=== PATIENT | male | born 1975 | race Caucasian/White ===

== ENCOUNTER 2020-07-23 11:11 | Emergency (ER) | payer OTHER, SELFPAY ==
--- NOTE | ~2020-07-23 | XR_ITS ---
XR knee RT 3V DATE: 07/23/2020 12:31 INDICATION: Right leg swelling TECHNIQUE: 3 views including crosstable lateral COMPARISON: None FINDINGS: No fracture or dislocation or joint effusion. No radiopaque intra-articular loose body or c hondrocalcinosis. Joint spaces are preserved. No periosteal reaction or bone destruction. IMPRESSION: Negative Reviewed, dictated and finalized at location A. IMPRESSION: Negative
--- NOTE | ~2020-07-23 | US_ITS ---
US venous doppler LE RT DATE: 07/23/2020 12:46 INDICATION: Right leg swelling following injury of right leg on exercising TECHNIQUE: Real-time and color flow imaging and Doppler analysis of the veins of the right lower extr emity COMPARISON: None FINDINGS: The right greater saphenous vein is patent. There is spontaneous and phasic flow and normal augmentation and color flow signal and normal compression of the deep veins of the right leg. IMPRESSION: No evidence of deep venous thrombosis of right leg Reviewed, dictated and finalized at [facility]. Reviewed, dictated and finalized at location A.
[2020-07-23 11:14] VITALS: BP 144/93; PULSE 70; RESP 18; TEMP 36.5; O2SAT 100
--- NOTE | 2020-07-23 12:15 | ED.GENADULT ---
HPI - General Adult General Chief complaint: Extremity Injury, Lower Stated complaint: right leg injury Time Seen by Provider: 07/23/20 11:25 Source: patient Mode of arrival: ambulatory Limitations: no limitations History of Present Illness HPI narrative: Patient presents for evaluation of right lower extremity pain and swelling. He indicates that she was kickboxing 3 days ago and was pushing off the ground with his right foot when he heard a pop in his right calf. He initially did not have any swelling in the right lower extremity. He states that today he noticed increased swelling in the right lower extremity. He contacted his doctor at one point and was informed that he should be evaluated urgently to rule out DVT. No personal or family history of VTE. He cannot provide me with a descriptive quality of the pain or numerical rating but states that pain is worse in the posterior right lower extremity with walking. He is taking naproxen for pain. He has a history of a torn meniscus in the right knee and was scheduled to have repair, however this was this plan was aborted in [place] about ten weeks ago after extent of injury was visualized. It was recommended he had a transplant in the future. Related Data Allergies Allergy/AdvReac Type Severity Reaction Status Date / Time No Known Allergies Allergy Verified 07/23/20 11:38 Review of Systems Review of Systems: Narrative: CONSTITUTIONAL: Denies fever, chills, or sweats. EYES: Denies visual changes, redness, or discharge. ENT: Denies rhinorrhea, congestion, sore throat, or otalgia. CARDIOVASCULAR: Reports swelling in right lower extremity. Denies chest pain, palpitations RESPIRATORY: Denies cough or dyspnea. GASTROINTESTINAL: Denies abdominal pain, nausea, vomiting, or diarrhea. GENITOURINARY: Denies dysuria or hematuria. SKIN: Denies rash or itching. MUSCULOSKELETAL: Reports pain in posterior right lower extremity. Denies back pain NEUROLOGIC: Denies headache, numbness, dizziness, or weakness. PSYCHIATRIC: Denies anxiety or depression. [facility] Past Medical History Medical History (Updated 07/23/20 @ 14:23 by Jose De Jesus Velasco, DARA, ) History of torn meniscus of right knee Family History Family History Mother Heart disease Social History Social History Smoking status: Never smoker Alcohol intake: never Substance use: never Living arrangements: with family Gender identity (if verbalized by the patient): Male Sexual Orientation (if Verbalized by the Patient): Straight or Heterosexual Spiritual care concerns: No Exam Narrative: Exam Narrative: GENERAL: Well-appearing, well-nourished, and in no acute distress. HEAD: Normocephalic, atraumatic. EYES: PERRLA and EOMI. ENT: Nares clear, no rhinorrhea or epistaxis. Mucous membranes moist. Oropharynx without tonsillar hypertrophy exudate or other lesions. Bilateral TMs pearly escalera nonbulging NECK: Supple. No adenopathy or masses. No carotid bruits or JVD CHEST: Clear to auscultation. No respiratory distress. No wheezes rales or rhonchi HEART: Regular rate and rhythm. No murmur heard. Normal peripheral pulses. ABDOMEN: Soft, nontender, nondistended, normal active bowel sounds. EXTREMITIES: Full range of motion of the right knee and right ankle. Positive crepitus in the right knee without deformity. Tenderness in posterior aspect of the right lower leg. 2+ pitting edema right lower extremity SKIN: Pt had michelle wrap in place, which was removed for examination. Warm, dry, no rash. NEURO: No focal deficits. Alert and oriented x3. PSYCH: Normal mood and affect. Course Course Emergency Course: This is a 45-year-old male who presented with complaints of swelling the right lower extremity after he injured his leg a few days prior. There was unilateral swelling, only on the right lower extremity. He has Dop
--- NOTE | 2020-07-23 12:22 | PC.NURSE ---
xray at bedside.
--- NOTE | 2020-07-23 12:34 | PC.NURSE ---
Pt to ultrasound.
[2020-07-23 12:45] LABS: Basophils Absolute Auto 0.1 K/mm3 (0.0-0.1); Basophils Percent Auto 0.9 % (0.2-1.2); Eosinophils Absolute Auto 0.1 K/mm3 (0-0.3); Eosinophils Percent Auto 1.8 % (0-4.4); Hematocrit 43.6 % (42.0-52.0); Hemoglobin 14.6 g/dL (14.0-18.0); Immature Granulocyte Absolute 0.01 K/mm3 (0.00-0.031); Immature Granulocyte Percent A 0.2 % (0-0.5); Lymphocytes Absolute Auto 1.92 K/mm3 (0.9-3.2); Lymphocytes Percent Auto 33.6 % (18.3-44.2); Mean Corpuscular HGB Conc 33.5 g/dl (32-36); Mean Corpuscular Volume 98.4 fl (80-100); Mean Platelet Volume 9.4 fl (7.4-10.4); Monocytes Absolute Auto 0.5 K/mm3 (0.1-0.6); Monocytes Percent Auto 8.2 % (2.6-8.5); Neutrophils Absolute Auto 3.2 K/mm3 (1.3-6.7); Neutrophils Percent Auto 55.3 % (45.5-73.1); Platelet Count Result 242 k/mm3 (150-375); Red Blood Count 4.43 M/mm3 (4.6-6.20); Red Cell Distribution Width 12.6 % (11.5-14.5); White Blood Count 5.7 K/mm3 (4.5-10.0)
[2020-07-23 12:50] LABS: Alanine Aminotransferase 20 U/L (4-50); Albumin Level 4.7 g/dL (3.5-5.1); Alkaline Phosphatase 109 U/L (38-126); Anion Gap 9 mmol/L (8-16); Aspartate Amino Transferase 36 U/L (17-59); Bilirubin,Total 0.6 mg/dL (0.2-1.3); Blood Urea Nitrogen 27 mg/dL (9-20); Calcium 9.8 mg/dL (8.4-10.2); Carbon Dioxide 27 mmol/L (22-30); Chloride 104 mmol/L (98-107); Creatine Kinase 62 U/L (55-170); Estimated CRCL calculation 112 ml/min; Estimated Glomerular Filt Rate > 60; Glucose 98 mg/dL (75-110); INR 0.8; Potassium 4.4 mmol/L (3.4-5.0); Prothrombin Time 12.1 Seconds (11.1-14.7); Sodium 140 mmol/L (137-145)
[2020-07-23 12:52] LABS: Partial Thromboplastin Time 24.8 SECONDS (22.3-36.8)
--- NOTE | 2020-07-23 13:52 | PC.NURSE ---
Pt resting in chair. No requests at this time. Call light within reach. Awaiting further disposition or orders.
[2020-07-23 14:25] VITALS: BP 140/98; PULSE 62; RESP 16; O2SAT 100
[2020-07-23 14:30] VITALS: BP 140/98; PULSE 62; RESP 16; O2SAT 100
== END 2020-07-23 14:34 | disposition home or self-care (01) ==
PROVIDERS: Emergency Provider Nurse Practitioner
DX: S86.911A Strain of unspecified muscle(s) and tendon(s) at lower leg level, right leg, initial encounter (principal); X50.9XXA Other and unspecified overexertion or strenuous movements or postures, initial encounter; Y93.A9 Activity, other involving cardiorespiratory exercise
CPT/HCPCS: 36415; 73562; 80053; 82550; 85025; 85610; 85730; 93971; 99284

== ENCOUNTER 2021-01-29 13:35 | Outpatient (CLI) | payer BC, SELFPAY ==
[2021-01-29 18:50] LABS: Basophils Percent Auto 0.6 % (0.2-1.2); Eosinophils Absolute Auto 0.1 K/mm3 (0-0.3); Eosinophils Percent Auto 2.1 % (0-4.4); Hematocrit 44.7 % (42.0-52.0); Hemoglobin 14.9 g/dL (14.0-18.0); Immature Granulocyte Absolute 0.01 K/mm3 (0.00-0.031); Immature Granulocyte Percent A 0.2 % (0-0.5); Lymphocytes Absolute Auto 2.55 K/mm3 (0.9-3.2); Lymphocytes Percent Auto 41.4 % (18.3-44.2); Mean Corpuscular HGB Conc 33.3 g/dl (32-36); Mean Corpuscular Hemoglobin 33.3 pg (26-34); Mean Corpuscular Volume 99.8 fl (80-100); Mean Platelet Volume 9.5 fl (7.4-10.4); Monocytes Absolute Auto 0.5 K/mm3 (0.1-0.6); Monocytes Percent Auto 8.1 % (2.6-8.5); Neutrophils Absolute Auto 2.9 K/mm3 (1.3-6.7); Neutrophils Percent Auto 47.6 % (45.5-73.1); Platelet Count Result 216 k/mm3 (150-375); Red Blood Count 4.48 M/mm3 (4.6-6.20); Red Cell Distribution Width 12.3 % (11.5-14.5); White Blood Count 6.2 K/mm3 (4.5-10.0)
[2021-01-29 19:06] LABS: Alanine Aminotransferase 29 U/L (4-50); Albumin Level 4.8 g/dL (3.5-5.1); Alkaline Phosphatase 102 U/L (38-126); Anion Gap 8 mmol/L (8-16); Aspartate Amino Transferase 35 U/L (17-59); Bilirubin,Total 0.8 mg/dL (0.2-1.3); Blood Urea Nitrogen 19 mg/dL (9-20); Carbon Dioxide 29 mmol/L (22-30); Chloride 102 mmol/L (98-107); Cholesterol 224 mg/dL (0-200); Estimated Glomerular Filt Rate > 60; Glucose 96 mg/dL (65-110); HDL Direct 92 mg/dL; Potassium 4.1 mmol/L (3.4-5.0); Sodium 139 mmol/L (137-145); Triglycerides 202 mg/dL (<150)
[2021-01-29 19:19] LABS: LDL Cholesterol Direct 104 mg/dL
[2021-02-01 20:29] LABS: Immunoglobulin E 48 kU/L (<=114)
== END 2021-01-29 13:36 | disposition home or self-care (01) ==
PROVIDERS: PCP Family Medicine; Visit Provider Family Medicine
DX: R21 Rash and other nonspecific skin eruption (principal)
CPT/HCPCS: 36415; 80053; 80061; 82785; 85025; 86003

== ENCOUNTER 2025-03-09 10:34 | Emergency (ER) | payer BC, SELFPAY ==
--- NOTE | 2025-03-09 10:35 | ED.GENADULT ---
HPI - General Adult General Chief complaint: Dizziness Stated complaint: Dizziness Time Seen by Provider: 03/09/25 10:35 Source: patient Mode of arrival: ambulatory Limitations: no limitations History of Present Illness HPI narrative: Pt is a 50 y/o male presenting with c/o dizziness. Reports whooshing in his ears, slight photophobia. Sx began 2-3 days ago. Denies any recent travel. NO recent URI. NO hx of similar. Sx are constant. No alleviating or aggravating factors. No tx initiated [employer]. Reports noncompliance with aspirin. NO additional complaints. Related Data Home Medications ?Medication ?Instructions ?Recorded ?Confirmed ?Last Taken ?Type aspirin 81 mg tablet 81 mg PO DAILY 03/09/25 03/09/25 Unknown History Allergies Allergy/AdvReac Type Severity Reaction Status Date / Time No Known Allergies Allergy Verified 03/09/25 10:47 Review of Systems Review of Systems: CONSTITUTIONAL: Denies body aches, fever, chills, or sweats. EYES: Denies visual changes, redness, or discharge. ENT: Reports whooshing to his ears Denies rhinorrhea, congestion, sore throat, or otalgia. CARDIOVASCULAR: Denies chest pain, palpitations, or edema. RESPIRATORY: Denies cough or dyspnea. GASTROINTESTINAL: Denies abdominal pain, nausea, vomiting, or diarrhea. GENITOURINARY: Denies dysuria or hematuria. SKIN: Denies rash, itching, or wounds. MUSCULOSKELETAL: Denies back pain, joint pain, or myalgia. NEUROLOGIC: reports dizziness, photophobia Denies headache, numbness, tingling, or weakness. PSYCH: Denies depression or anxiety. [facility] Past Medical History Medical History Asthma History of torn meniscus of right knee Family History Family History Mother Heart disease Social History Social History Smoking status: Never smoker Alcohol intake: current Substance use: never Living arrangements: alone Gender identity (if verbalized by the patient): Male Sexual Orientation (if Verbalized by the Patient): Straight or Heterosexual Spiritual care concerns: No Exam Narrative: GENERAL: Well-appearing, well-nourished, and in no acute distress. HEAD: Normocephalic, atraumatic. EYES: EOMI. No redness or drainage. Conjunctivae normal. ENT: Mucous membranes pink and moist. Nares clear. No rhinorrhea. TMs normal bilaterally. Throat normal. Uvula midline. NECK: Normal AROM. Supple. No lymphadenopathy. CHEST: No respiratory distress. Clear to auscultation. HEART: Regular rate and rhythm. No murmur appreciated. Normal peripheral pulses. ABDOMEN: Soft, nontender, nondistended, normal active bowel sounds. MUSCULOSKELETAL: No bony tenderness. EXTREMITIES: Normal range of motion. No edema. SKIN: Warm, dry, no rash. Capillary refill normal. Normal skin turgor. NEURO: No focal deficits. Alert and oriented x3. Gait steady. Negative keara halpike PSYCH: Normal affect. No signs of depression or anxiety. Neuro: Cranial nerves: Yes CN's II-XII intact bilaterally Course Course Level of Care: Express Care Visit Vital Signs Vital signs: Vital Signs Pulse Rate 65 03/09/25 11:02 Blood Pressure 141/92 H 03/09/25 11:02 Temperature 97.8 F 03/09/25 11:04 Pulse Rate 78 03/09/25 11:04 Respiratory Rate 16 03/09/25 11:04 Blood Pressure 154/105 H 03/09/25 11:04 Pulse Oximetry 100 03/09/25 11:04 MDM MDM Narrative Medical decision making narrative: sx not consistent with classic vertigo--given BP readings, sx reported lack of PCP and limited diagnostics in the [facility] setting, I recommended he be transferred to ER for further diagnostic work up. Pt declined. Aware he is signing out of this facility AMA Differential Diagnosis Differential Diagnosis: vertigo, mass, CVA, [place] Lab Data Labs: Lab Results 03/09/25 Range/Units 10:53 POC Capillary Glucose 112 H (65-105) mg/dl ECG Data EKG #1: Attestation: I personally reviewed and interpreted this ECG as follows: ECG completion date: 03/09/25 ECG completion time: 10:58 Prior ECG tracings: available for review Ischemic changes: other (no STEMI) normal rate, sinus rhythm and no acute changes Discharge Plan Discharge Clinical Impression: Dizziness, Elevated blood pressure reading in office without diagnosis of hypertension, Photophobia, Noncompliance with medication regimen Patient Disposition: Left Against Medical Advice Condition: Stable Patient Language: Austrian Prescriptions: No Action aspirin 81 mg tablet 81 mg PO DAILY albuterol sulfate 90 mcg/actuation HFA aerosol inhaler 1 puff inhalation Q4H PRN (Reason: bronchospasm) Qty: 8.5 5RF Follow-up/Referrals: Casa Alvarez MD [Primary Care Provider, [facility]] - 03/10/25 Time of Disposition: 11:18
--- NOTE | 2025-03-09 10:46 | ECG_ITS ---
Test Date: 2025-03-09 10:58:05 Measurements Intervals [place] Rate: 62 P: 68 ND: 184 QRS: 61 QRSD: 108 T: 67 QT: 426 QTc: 435 Interpretive Statements SINUS RHYTHM BASELINE WANDER- II, III NORMAL ECG No previous ECG available for comparison Electronically Signed On 03-09-2025 12:20:39 [employer] by Javon Blanco D.O.
[2025-03-09 11:02] VITALS: BP 141/92; PULSE 65
[2025-03-09 11:03] VITALS: BP 156/109; BP 163/106; PULSE 67; PULSE 71
[2025-03-09 11:04] VITALS: BP 154/105; PULSE 78; RESP 16; TEMP 36.6; O2SAT 100
== END 2025-03-09 11:20 | disposition left against medical advice (07) ==
PROVIDERS: Emergency Provider Registered Nurse; PCP Family Medicine
DX: R42 Dizziness and giddiness (principal); R03.0 Elevated blood-pressure reading, without diagnosis of hypertension; H53.149 Visual discomfort, unspecified; Z91.148 Patient's other noncompliance with medication regimen for other reason; Z79.82 Long term (current) use of aspirin
CPT/HCPCS: 82948; 93005; 99213; G0463